=== PATIENT | male | born 1930 | race Caucasian/White ===

== ENCOUNTER → 2016-06-14 | Outpatient (CLI) | payer MEDICARE, MEDICAID | END | disposition home or self-care (01) | LOC: GT 07:20 | PROVIDERS: ATTEND Internal Medicine | DX: I50.9 Heart failure, unspecified (principal); I10 Essential (primary) hypertension; M15.0 Primary generalized (osteo)arthritis ==

== ENCOUNTER → 2016-06-17 | Outpatient (CLI) | payer MEDICARE, MEDICAID | LOC: GT 07:44 | PROVIDERS: ATTEND Family Medicine | DX: I10 Essential (primary) hypertension (principal); I48.91 Unspecified atrial fibrillation; J44.1 Chronic obstructive pulmonary disease with (acute) exacerbation; E11.9 Type 2 diabetes mellitus without complications ==

== ENCOUNTER → 2016-07-26 | Outpatient (CLI) | payer MEDICARE, MEDICAID | END | disposition home or self-care (01) | LOC: GT 08:07 | PROVIDERS: ATTEND Family Medicine | DX: I48.91 Unspecified atrial fibrillation (principal); E11.9 Type 2 diabetes mellitus without complications; E56.8 Deficiency of other vitamins; I10 Essential (primary) hypertension; D51.8 Other vitamin B12 deficiency anemias; D64.9 Anemia, unspecified ==

== ENCOUNTER → 2016-09-25 | Outpatient (CLI) | payer MEDICARE, MEDICAID | LOC: GT 06:52 | PROVIDERS: ATTEND Family Medicine | DX: I10 Essential (primary) hypertension (principal); E56.8 Deficiency of other vitamins; E11.9 Type 2 diabetes mellitus without complications; D51.9 Vitamin B12 deficiency anemia, unspecified; E56.9 Vitamin deficiency, unspecified; Z51.81 Encounter for therapeutic drug level monitoring ==

== ENCOUNTER → 2016-11-13 | Outpatient (CLI) | payer MEDICAID, MEDICARE | END | disposition home or self-care (01) | LOC: GT 11:05 | PROVIDERS: ATTEND Family Medicine | DX: I48.91 Unspecified atrial fibrillation (principal) ==

== ENCOUNTER → 2017-01-27 | Outpatient (CLI) | payer MEDICARE | END | disposition home or self-care (01) | LOC: GT 07:36 | PROVIDERS: ATTEND Family Medicine | DX: I11.0 Hypertensive heart disease with heart failure (principal); I50.9 Heart failure, unspecified; E11.9 Type 2 diabetes mellitus without complications; D51.8 Other vitamin B12 deficiency anemias; E56.9 Vitamin deficiency, unspecified ==

== ENCOUNTER → 2017-02-03 | Outpatient (CLI) | payer MEDICARE | END | disposition home or self-care (01) | LOC: GT 07:27 | PROVIDERS: ATTEND Family Medicine | DX: I48.91 Unspecified atrial fibrillation (principal); I10 Essential (primary) hypertension; E56.8 Deficiency of other vitamins; G30.9 Alzheimer's disease, unspecified; J44.1 Chronic obstructive pulmonary disease with (acute) exacerbation; A00-B99 Certain infectious and parasitic diseases; E11.9 Type 2 diabetes mellitus without complications ==

== ENCOUNTER → 2017-02-28 | Outpatient (CLI) | payer MEDICARE | END | disposition home or self-care (01) | LOC: GT 08:17 | PROVIDERS: ATTEND Family Medicine | DX: D51.8 Other vitamin B12 deficiency anemias (principal); E56.9 Vitamin deficiency, unspecified ==

== ENCOUNTER → 2017-03-26 | Outpatient (CLI) | payer MEDICARE | LOC: GT 06:25 | PROVIDERS: ATTEND Family Medicine | DX: J18.9 Pneumonia, unspecified organism (principal) | CPT/HCPCS: 85025; P9603 ==

== ENCOUNTER → 2017-05-14 | Outpatient (CLI) | payer MEDICARE | LOC: GT 07:26 | PROVIDERS: ATTEND Family Medicine | DX: I10 Essential (primary) hypertension (principal); D51.8 Other vitamin B12 deficiency anemias; E11.9 Type 2 diabetes mellitus without complications; E56.8 Deficiency of other vitamins; I48.91 Unspecified atrial fibrillation; I50.9 Heart failure, unspecified; M10.00 Idiopathic gout, unspecified site | CPT/HCPCS: 36415; 80053; 80061; 80162; 82248; 83036; 85025; P9603 ==

== ENCOUNTER 2017-06-17 10:47 | Inpatient (IN) | payer MEDICARE ==
--- NOTE | 2017-06-17 10:52 | HP ---
SUPERVISING PHYSICIAN: Marcin Posada MD CHIEF COMPLAINT: Shortness of breath. HISTORY OF PRESENT ILLNESS: This is an 87-year-old male resident of a intermediate who came with shortness of breath. Apparently they had been treating him for a chronic obstructive pulmonary disease exacerbation on an outpatient basis for a couple of weeks. He was being treated with Zithromax and Keflex. He failed to really improve and in the office today was significantly short of breath and unable to speak in full sentences. Therefore, Dr. Coles contacted me for direct admission. Currently, the patient is pretty short of breath at rest. He is diminished with bilateral wheezing. He has rhonchi noted as well. O2 saturation is about 92% on room air. PAST MEDICAL HISTORY: 1. Chronic obstructive pulmonary disease. 2. Atrial fibrillation. 3. Sleep apnea. 4. Hypertension. 5. Left bundle branch block. 6. Cor pulmonale. 7. Diverticulosis. 8. Renal insufficiency. 9. Gout. 10. Diabetes mellitus, type 2. 11. Herpes zoster. PAST SURGICAL HISTORY: 1. Right inguinal hernia repair. 2. Right total knee arthroplasty. 3. Basal cell carcinoma excision. 4. Colonoscopy with polypectomies. CURRENT MEDICATIONS: 1. Multivitamin 1 tab daily. 2. Vitamin D 1000 units p.o. daily. 3. Vitamin B12 1000 mcg sublingual daily. 4. Calcium plus D 1 tab p.o. daily. 5. Anoro Ellipta 62.5/25 1 inhalation daily. 6. Spironolactone 25 mg daily. 7. Lasix 40 mg at 12 noon 8. Losartan 25 mg daily. 9. Glipizide 10 mg p.o. b.i.d. 10. Digoxin 125 mcg p.o. daily. 11. Allopurinol 100 mg p.o. daily. 12. Omeprazole 20 mg p.o. b.i.d.. 13. Lexapro 5 mg p.o. daily. 14. DuoNeb 3 mL per nebulizer q.i.d. p.r.n. 15. Hydroxyzine 1 to 2 tabs p.o. at bedtime. 16. Metformin 500 mg t.i.d. ALLERGIES: ATORVASTATIN, CODEINE, LISINOPRIL, MAGNESIUM, PENICILLIN, SIMVASTATIN, SULFA. FAMILY HISTORY: Father at age 94. Mother had Alzheimer's disease. SOCIAL HISTORY: No alcohol, no illicit drugs, but does smoke. REVIEW OF SYSTEMS: CONSTITUTIONAL: No fever or chills. No recent weight loss or weight gain. Positive for malaise. HEENT: No headaches, vision changes, ear pain, nasal congestion or throat pain. RESPIRATORY: Positive for cough. No hemoptysis. Positive for dyspnea. No pleuritic chest pain. CARDIOVASCULAR: No chest pain, palpitations or peripheral edema. GASTROINTESTINAL: No nausea, vomiting, diarrhea, constipation or abdominal pain. GENITOURINARY: No dysuria, frequency or flank pain. MUSCULOSKELETAL: No muscle cramps, joint pain or joint swelling. ENDOCRINE: No polydipsia, polyuria, polyphagia. No heat or cold intolerance. NEUROLOGIC: No syncope, paresthesias, seizures. PHYSICAL EXAMINATION: VITAL SIGNS: Blood pressure 108/68. Heart rate 96. Respiratory rate 22. Temperature 98.1. Oxygen saturation 93%. GENERAL: Mr. Durand is an 87-year-old male patient in obvious respiratory distress currently. HEENT: Normocephalic, atraumatic. Pupils are equal and reactive. No nasal drainage. Throat with dry mucosa. NECK: Supple. Midline trachea. No jugular venous distention. CHEST: Symmetrical with equal rise and fall of the chest with inspiration and expiration. Lung sounds are diminished with bilateral wheezing and scattered rhonchi. CARDIOVASCULAR: Slightly irregular rhythm. Normal S1, S2. ABDOMEN: Soft. Positive bowel sounds. GENITOURINARY: Deferred. EXTREMITIES: Lower extremities with no edema. NEUROLOGIC: The patient is alert. LABORATORY: White count 8.6, hemoglobin 12.5, hematocrit 37.5, platelet count 187. Sodium 135, potassium 4.9, chloride 101, CO2 23, BUN 44, creatinine 1.8, glucose 256, calcium 9.2. BNP 222. Chest x-ray done at the clinic did not show any pneumonia. ASSESSMENT: 1. Chronic obstructive pulmonary disease exacerbation which has failed outpatient therapy. 2. Hypertension, currently controlled. 3. Diabetes mellitus, type 2. 4. History of atrial fibrillation with currently controlled rate. PLAN: We will utilize empiric antibiotics as well as IV steroids and nebulizer therapies. He did not appear to improve well with azithromycin and Keflex p.o. as an outpatient. We will utilize Lovenox for DVT prophylaxis as well as omeprazole for GI ulcer prophylaxis at this point as well. If he improves over the next 24 hours, he may be able to go back to the intermediate tomorrow depending on his clinical picture at that time. We will repeat labs as well as chest x-ray tomorrow as well. #[id number] [facility]
[2017-06-17] MEDS ORDERED: DEXTROSE 50% 25 GM/50 ML SYG IV PRN (10:53)
[2017-06-17] MEDS ORDERED: SODIUM CHLORIDE 0.9% (FLUSH) 10 ML SYG IV PRN (10:53)
[2017-06-17] MEDS ORDERED: GLUCAGON INJ 1 MG VIAL SUBCU PRN (10:53)
[2017-06-17] MEDS ORDERED: ACETAMINOPHEN 325 MG TAB PO PRN (10:53)
[2017-06-17] MEDS ORDERED: methylPREDNISolone SODIUM SUC 40 MG/ML VIAL IV SCH (11:00)
[2017-06-17] MEDS ORDERED: levoFLOXacin 500MG IV 500 MG in PREMIX BAG 1 BAG IVPB SCH (11:00)
[2017-06-17] MEDS ORDERED: levoFLOXacin 500MG IV 100 ML IVPB ONE (11:21)
[2017-06-17] MEDS: IV SET AND CAP CHANGE INJ INJ SCH (11:29)
[2017-06-17] MEDS: INSULIN LISPRO 100 UNITS/ML PEN SUBCU SCH ×3 (12:06→21:09)
[2017-06-17] MEDS: IPRATROPIUM/ALBUTEROL 3 ML VIAL INH SCH ×3 (13:50→20:09)
[2017-06-17] MEDS ORDERED: methylPREDNISolone SODIUM SUC 40 MG/ML VIAL IV ONE (16:22)
[2017-06-17] MEDS ORDERED: glipiZIDE 5 MG TAB PO ONE (16:22)
[2017-06-17] MEDS ORDERED: OMEPRAZOLE CAP 20 MG CAP PO ONE (16:22)
[2017-06-17] MEDS: glipiZIDE 5 MG TAB PO SCH (16:28)
[2017-06-17] MEDS: OMEPRAZOLE CAP 20 MG CAP PO SCH (16:29)
[2017-06-17] MEDS: methylPREDNISolone SODIUM SUC 40 MG/ML VIAL IV SCH ×2 (17:31→23:49)
[2017-06-17] MEDS: SODIUM CHLORIDE 0.9% 1000ML 1,000 ML IVS PRN (19:35)
[2017-06-17] MEDS: metFORMIN XR 500 MG TAB.ER.24 PO SCH (21:08)
[2017-06-18] MEDS: IPRATROPIUM/ALBUTEROL 3 ML VIAL INH SCH ×5 (00:05→16:15)
[2017-06-18] MEDS: SODIUM CHLORIDE 0.9% 1000ML 1,000 ML IVS PRN ×2 (05:22→16:47)
[2017-06-18] MEDS: methylPREDNISolone SODIUM SUC 40 MG/ML VIAL IV SCH ×3 (05:32→17:00)
[2017-06-18] MEDS: OMEPRAZOLE CAP 20 MG CAP PO SCH ×2 (06:24→16:50)
[2017-06-18] MEDS: glipiZIDE 5 MG TAB PO SCH ×2 (06:24→16:50)
[2017-06-18] MEDS ORDERED: OMEPRAZOLE CAP 20 MG CAP PO SCH (06:30)
[2017-06-18] MEDS ORDERED: levoFLOXacin 500MG IV 0 ML IVPB ONE (07:11)
[2017-06-18] MEDS: INSULIN LISPRO 100 UNITS/ML PEN SUBCU SCH ×4 (07:12→21:24)
--- NOTE | 2017-06-18 07:16 | RAD ---
Procedure: XR CHEST 1 VIEW Exam Date: 06/18/2017 Ordering Provider: Fabiano Walter Clinical Indication: copd exac Comparison: 06/11/2017 Findings: Cardiomediastinal silhouette: Cardiac size magnified by technique. Pulmonary vasculature : Prominent centrally without kena edema. Focal lung consolidation: No focal lung consolidation. Lungs are hyperinflated. Pleural effusion: None Pneumothorax: None Bones and soft tissues: Nonacute Impression: 1. No acute abnormalities in the chest. Electronically signed by: Martín Chen MD 06/18/2017 7:15 AM CDT
[2017-06-18] MEDS: SPIRONOLACTONE 25 MG TAB PO SCH (08:39)
[2017-06-18] MEDS: CALCIUM CARBONATE-VITAMIN D 500 MG TAB PO SCH (08:39)
[2017-06-18] MEDS: LOSARTAN POTASSIUM 25 MG TAB PO SCH (08:39)
[2017-06-18] MEDS: ESCITALOPRAM 10 MG TAB PO SCH (08:39)
[2017-06-18] MEDS: MULTIPLE VITAMINS W/ MINERALS 1 EA TAB PO SCH (08:39)
[2017-06-18] MEDS: CYANOCOBALAMIN 1,000 MCG TAB PO SCH (08:41)
[2017-06-18] MEDS: CHOLECALCIFEROL 2,000 IU TAB PO SCH (08:41)
[2017-06-18] MEDS: ALLOPURINOL 100 MG TAB PO SCH (08:42)
[2017-06-18] MEDS ORDERED: levoFLOXacin 250MG IV 50 ML IVPB ONE (08:45)
[2017-06-18] MEDS: levoFLOXacin 250MG IV 250 MG in PREMIX BAG 1 BAG IVPB SCH (08:46)
[2017-06-18] MEDS ORDERED: levoFLOXacin 500MG IV 500 MG in PREMIX BAG 1 BAG IVPB SCH (09:00)
[2017-06-18] MEDS: metFORMIN XR 500 MG TAB.ER.24 PO SCH ×4 (09:29→16:50)
[2017-06-18] MEDS: DIGOXIN 0.125 MG TAB PO SCH (12:47)
[2017-06-18] MEDS ORDERED: LEVALBUTEROL NEBS 1.25 MG/3 ML VIAL NEB PRN (19:43)
[2017-06-18] MEDS: SODIUM CHLORIDE 0.9% (FLUSH) 10 ML SYG IV SCH (21:24)
--- NOTE | 2017-06-19 00:06 | PN ---
DATE: 06/18/17 SUPERVISING PHYSICIAN: Marcin Posada M.D. SUBJECTIVE: The patient is sitting up in his bed in his hospital room. He is eating his meal. Complains of shortness of breath but is much improved since yesterday. Denies any chest pain, nausea, vomiting, diarrhea or constipation. Still feels quite weak. OBJECTIVE: VITAL SIGNS: He is afebrile, heart rate has been 102 to 130. Blood pressure 91/52, respiratory rate 23, O2 sat has been as low as 89% on room air and is now 92% on room air. RESPIRATORY: A few rhonchi scattered throughout all lung hood. There is no expiratory wheezing. Somewhat diminished at the bases. CARDIAC: Tachycardic rate, regular rhythm. GASTROINTESTINAL: Abdomen is soft, nondistended, non-tender. Bowel sounds are positive. NEUROLOGIC: He is awake, alert and oriented times three. LABORATORY: Sodium is slightly low at 134 with a slightly elevated potassium at 5.3, chloride 104, carbon dioxide 20, BUN 45, creatinine 1.92. Glucose has run between 271 and 333. Preliminary blood cultures show no growth after 24 hours. Chest x-ray per radiology interpretation showed no acute abnormalities in the chest. All other labs and films have been reviewed via the EMR. ASSESSMENT: 1. Chronic obstructive pulmonary disease with acute exacerbation. He has failed outpatient therapy. 2. Hypertension currently controlled. 3. Acute on chronic kidney disease. His baseline creatinine is about 1.5. 4. Diabetes mellitus, type 2. 5. History of atrial fibrillation. PLAN: We will continue present supportive care. Will need to closely watch his heart rate. It has been elevated to the 120s today, but his family has said that his heart rate always goes up when he is on IV steroids. His IV steroids have been discontinued and he is now on a p.o. dose of prednisone. I have discontinued his fluids. We will have to closely watch his potassium, it is slightly elevated as well as his kidney functions. I will reorder some labs for in the morning. The patient has been encouraged to wear his oxygen if needed, although he usually does not have it on. We will monitor him closely and follow as needed. #[id number] [facility]
[2017-06-19] MEDS: OMEPRAZOLE CAP 20 MG CAP PO SCH ×2 (06:30→16:59)
[2017-06-19] MEDS: glipiZIDE 5 MG TAB PO SCH ×2 (06:45→16:59)
[2017-06-19] MEDS ORDERED: levoFLOXacin 250MG IV 50 ML IVPB ONE (07:01)
[2017-06-19] MEDS: INSULIN LISPRO 100 UNITS/ML PEN SUBCU SCH ×4 (07:40→21:06)
[2017-06-19] MEDS: metFORMIN XR 500 MG TAB.ER.24 PO SCH (07:40)
[2017-06-19] MEDS: levoFLOXacin 250MG IV 250 MG in PREMIX BAG 1 BAG IVPB SCH (08:41)
[2017-06-19] MEDS: ESCITALOPRAM 10 MG TAB PO SCH (08:41)
[2017-06-19] MEDS: CHOLECALCIFEROL 2,000 IU TAB PO SCH (08:42)
[2017-06-19] MEDS: MULTIPLE VITAMINS W/ MINERALS 1 EA TAB PO SCH (08:42)
[2017-06-19] MEDS: SPIRONOLACTONE 25 MG TAB PO SCH (08:42)
[2017-06-19] MEDS: LEVALBUTEROL NEBS 1.25 MG/3 ML VIAL NEB SCH ×4 (08:42→20:37)
[2017-06-19] MEDS: predniSONE 20 MG TAB PO SCH (08:44)
[2017-06-19] MEDS: ALLOPURINOL 100 MG TAB PO SCH (08:45)
[2017-06-19] MEDS: CYANOCOBALAMIN 1,000 MCG TAB PO SCH (08:45)
[2017-06-19] MEDS: LOSARTAN POTASSIUM 25 MG TAB PO SCH (08:45)
[2017-06-19] MEDS: SODIUM CHLORIDE 0.9% (FLUSH) 10 ML SYG IV SCH ×2 (08:46→21:06)
[2017-06-19] MEDS: CALCIUM CARBONATE-VITAMIN D 500 MG TAB PO SCH (08:47)
[2017-06-19] MEDS: DIGOXIN 0.125 MG TAB PO SCH (11:55)
[2017-06-19] MEDS ORDERED: SODIUM CHLORIDE 0.9% 500ML 500 ML IVS ONE (17:29)
--- NOTE | 2017-06-19 19:04 | PN ---
DATE: 06/19/17 SUPERVISING PHYSICIAN: Marcin Posada M.D. SUBJECTIVE: The patient is lying in bed. He is visiting with his family. Has no complaints of shortness of breath, nausea, vomiting or diarrhea. Complains of some difficulty speaking but he does have his appetite back. He is rather hoarse. OBJECTIVE: He is afebrile, heart rate 73, blood pressure 107/64, respiratory rate 18, O2 sat 95% on room air. RESPIRATORY: Essentially clear to auscultation bilaterally. Somewhat diminished especially at the bases. CARDIAC : Regular rate and rhythm. GASTROINTESTINAL: Abdomen is soft, nondistended, non -tender. Bowel sounds are positive. NEUROLOGIC: He is awake, alert and oriented times three. LABORATORY: WBCs are 11.3 with hemoglobin 11.3 and hematocrit 34.3, neutrophils 92.5%. Sodium 138, potassium 5.7, chloride 108, carbon dioxide 18, BUN 54, creatinine 2.02. Random glucose 280. Preliminary blood cultures show no growth after 48 hours. All other labs and films have been reviewed via the EMR. ASSESSMENT: 1. Chronic obstructive pulmonary disease with acute exacerbation, failed outpatient therapy. 2. Hypertension currently controlled. 3. Acute on chronic kidney disease. His baseline creatinine is about 1.5. 4. Diabetes mellitus, type 2. 5. History of atrial fibrillation. PLAN: We will continue present supportive care. His heart rate is much better overnight as we have decreased his steroids. Will continue to monitor that closely. His kidney function is slightly worsened today as his potassium is slightly higher. Will repeat lab in the morning and monitor that closely. Continue to encourage good pulmonary hygiene. I will also consult Physical Therapy. Will continue to monitor the patient closely and follow as needed. Dr. Posada is the collaborating physician available for consultation. [facility][id number] [facility]
[2017-06-20] MEDS: OMEPRAZOLE CAP 20 MG CAP PO SCH ×2 (06:25→16:26)
[2017-06-20] MEDS: glipiZIDE 5 MG TAB PO SCH ×2 (06:34→16:26)
[2017-06-20] MEDS: INSULIN LISPRO 100 UNITS/ML PEN SUBCU SCH ×3 (07:42→16:30)
[2017-06-20] MEDS ORDERED: levoFLOXacin 250MG IV 50 ML IVPB ONE (08:20)
[2017-06-20] MEDS: LEVALBUTEROL NEBS 1.25 MG/3 ML VIAL NEB SCH ×3 (08:24→15:23)
[2017-06-20] MEDS: ALLOPURINOL 100 MG TAB PO SCH (08:44)
[2017-06-20] MEDS: levoFLOXacin 250MG IV 250 MG in PREMIX BAG 1 BAG IVPB SCH (08:44)
[2017-06-20] MEDS: CHOLECALCIFEROL 2,000 IU TAB PO SCH (08:45)
[2017-06-20] MEDS: predniSONE 20 MG TAB PO SCH (08:45)
[2017-06-20] MEDS: SPIRONOLACTONE 25 MG TAB PO SCH (08:46)
[2017-06-20] MEDS: CYANOCOBALAMIN 1,000 MCG TAB PO SCH (08:46)
[2017-06-20] MEDS: CALCIUM CARBONATE-VITAMIN D 500 MG TAB PO SCH (08:46)
[2017-06-20] MEDS: LOSARTAN POTASSIUM 25 MG TAB PO SCH (08:46)
[2017-06-20] MEDS: ESCITALOPRAM 10 MG TAB PO SCH (08:47)
[2017-06-20] MEDS: MULTIPLE VITAMINS W/ MINERALS 1 EA TAB PO SCH (08:47)
[2017-06-20] MEDS: SODIUM CHLORIDE 0.9% (FLUSH) 10 ML SYG IV SCH (08:48)
[2017-06-20] MEDS: DIGOXIN 0.125 MG TAB PO SCH (12:10)
[2017-06-20] MEDS: IV SET AND CAP CHANGE INJ INJ SCH (12:13)
[2017-06-20 14:44] VITALS: BP 107/67; TEMP 98.2
[2017-06-20 16:07] VITALS: O2SAT 91
[2017-06-21] MEDS ORDERED: levoFLOXacin 500 MG TAB PO SCH (09:00)
--- NOTE | 2017-06-21 13:45 | DS ---
SUPERVISING PHYSICIAN: Marcin Posada M.D. DISCHARGE DIAGNOSIS: 1. Chronic obstructive pulmonary disease with acute exacerbation, failed outpatient therapy. 2. Hypertension currently controlled. 3. Acute on chronic kidney disease. His baseline creatinine is about 1.5. 4. Diabetes mellitus, type 2. 5. History of atrial fibrillation. HISTORY OF PRESENT ILLNESS: This is an 87-year-old male patient who is a resident of [facility], who came in with shortness of breath. Dr. Coles, his primary care physician, had been treating his COPD as an outpatient basis for several weeks. He had being treated with Zithromax and Keflex. He failed to improve and was a direct admission from Dr. Coles' office to the hospital. HOSPITAL COURSE: On admission, he was very shortness of breath. He was diminished with bilateral wheezing, has rhonchi noted as well and saturation of 92% on room air. He was started on IV steroids as well as Levaquin. His IV steroids were titrated down fairly quickly as his family said that IV steroids tend to make him tachycardic. For about 24 hours his heart rate was in the 110s to low 130s. After titrating his steroids down his heart rate did come down to around 100. He has been on p.o. steroids for the last 24 hours and his pulse rate is down to the 80s. His H&H was stable. His WBCs did get as high at 11.3 but may have been due to his steroid therapy. Today, it is 10. He did have a left shift through his entire stay and today his neutrophils are 87.9%. He was hyponatremic several times and today his sodium is 132. Potassium was slightly elevated. It was as high as 5.7, today it is 5.3 but that may be due to his chronic kidney disease. Creatinine baseline is about 1.5 and today it is 1.74. His creatinine was as high as 2.02 but he received some IV fluids and that has improved. His preliminary blood culture showed no growth after 3 days and his chest x-ray showed no acute abnormalities of the chest. The patient is much improved and he will be discharged to [facility] today. DISCHARGE PLAN: The patient will be discharged back to [facility] today. He is in good condition. He is to increase his activity as tolerated. He has a followup appointment with his primary care physician Dr. Coles, on 07/01/17 at 8:30 AM. He is to get a BMP on arrival due to his hyponatremia and hyperkalemia. I have discharged him on Levaquin and a prednisone taper. There was also a question that the patient may have been allergic to Levaquin, but he has tolerated his Levaquin without any issues. He [facility] also [facility]acting [facility] but his dosing was never clarified while in the hospital. He will be discharged on his usual medications. The [facility] called that his Levemir had inadvertently been left off of his medication list, but it is to be resumed at the [facility] at his previous dosing which I believe is 6 units of long-acting insulin daily. I have also given him a routine sliding scale insulin a.c. and h.s. If he has any further problems or complications, he is to return to the hospital or call Dr. Coles' office. DISCHARGE MEDICATIONS: 1. Furosemide. 2. Allopurinol. 3. Cyanocobalamin. 4. Multivitamins. 5. Calcium and Vitamin D. 6. Anoro ellipta. 7. Spironolactone. 8. Losartan. 9. Glipizide. 10. Digoxin. 11. Omeprazole. 12. Lexapro. 13. DuoNeb. 14. Hydroxyzine. 15. Metformin. 16. Vitamin D. 17. Levaquin. 18. Prednisone. 19. Long-acting insulin. 20. Humalog insulin sliding scale a.c. and h.s. Dr. Posada is the collaborating physician available for consultation. #[id number] [facility]
== END 2017-06-20 16:56 | DRG 191 ==
LOC: MS 10:47
PROVIDERS: ADMIT Nurse Practitioner; ATTEND Nurse Practitioner Acute Care
DX: J44.1 Chronic obstructive pulmonary disease with (acute) exacerbation (principal); N17.9 Acute kidney failure, unspecified; E87.1 Hypo-osmolality and hyponatremia; I13.10 Hypertensive heart and chronic kidney disease without heart failure, with stage 1 through stage 4 chronic kidney disease, or unspecified chronic kidney disease; E11.22 Type 2 diabetes mellitus with diabetic chronic kidney disease; N18.9 Chronic kidney disease, unspecified; E87.5 Hyperkalemia; I48.91 Unspecified atrial fibrillation; Z79.4 Long term (current) use of insulin; G47.30 Sleep apnea, unspecified; I44.7 Left bundle-branch block, unspecified; M10.9 Gout, unspecified; Z96.651 Presence of right artificial knee joint; Z85.9 Personal history of malignant neoplasm, unspecified; Z79.84 Long term (current) use of oral hypoglycemic drugs; Z88.5 Allergy status to narcotic agent; Z88.0 Allergy status to penicillin; Z88.2 Allergy status to sulfonamides; Z88.8 Allergy status to other drugs, medicaments and biological substances

== ENCOUNTER → 2017-06-25 | Outpatient (CLI) | payer MEDICARE, MEDICAID | LOC: GMAL 10:47 | PROVIDERS: ATTEND Family Medicine | DX: I10 Essential (primary) hypertension (principal); I50.9 Heart failure, unspecified ==

== ENCOUNTER → 2017-06-30 | Outpatient (CLI) | payer MEDICARE, MEDICAID | LOC: GT 05:24 | PROVIDERS: ATTEND Family Medicine | DX: E11.9 Type 2 diabetes mellitus without complications (principal); I50.9 Heart failure, unspecified; I10 Essential (primary) hypertension ==

== ENCOUNTER → 2017-11-25 | Outpatient (CLI) | payer MEDICARE, MEDICAID | LOC: GT 17:07 | PROVIDERS: ATTEND Physician Assistant | DX: L02.92 Furuncle, unspecified (principal) ==

== ENCOUNTER 2018-03-04 08:48 | Inpatient (IN) | payer MEDICARE, MEDICAID ==
[2018-03-04] MEDS ORDERED: IPRATROPIUM/ALBUTEROL 3 ML VIAL NEB ONE ×2 (09:21→11:56)
--- NOTE | 2018-03-04 09:34 | ED.PDOC ---
History of Present Illness - General Chief Complaint: Respiratory Problem Time Seen by Provider: 03/04/18 09:31 Source: patient Exam Limitations: no limitations Additional Information: PT PRESENTS AFTER FALL LAST PM. DID HIT HEAD NO LOC. REFUSED TO COME TO ER. PT HAS HAD PROGRESSIVE WEAKNESS, COUGH, AND LOW GRADE FEVER MUCH WORSE SINCE YESTERDAY. - History of Present Illness Timing/Duration: unsure Severity: moderate Improving Factors: nothing Worsening Factors: nothing Associated Symptoms: cough Allergies/Adverse Reactions: Allergies Atorvastatin [From Lipitor] Allergy (Verified 06/17/17 11:10) Codeine Allergy (Verified 06/17/17 11:10) Lisinopril Allergy (Verified 06/17/17 11:10) Magnesium Sulfate Allergy (Verified 06/17/17 11:10) Penicillins Allergy (Verified 06/17/17 11:10) Simvastatin [From Zocor] Allergy (Verified 06/17/17 11:10) Sulfa Antibiotics Allergy (Verified 06/17/17 11:10) Home Medications: Ambulatory Orders Allopurinol 100 mg PO DAILY 06/08/13 Furosemide [Lasix] 40 mg PO DAILY@1200 06/08/13 Calcium Citrate-Vitamin D [Calcium Citrate + D 315-200 mg-Unit] 1 tab PO DAILY 06/17/17 Cholecalciferol [Vitamin D] 1,000 unit PO DAILY 06/17/17 Cyanocobalamin [Vitamin B-12] 1,000 mcg SL DAILY 06/17/17 Digoxin [Digox] 125 mcg PO DAILY 06/17/17 Escitalopram Oxalate [Lexapro] 5 mg PO DAILY 06/17/17 Glipizide 10 mg PO BID 06/17/17 Hydroxyzine HCl 1 - 2 tablet PO BEDTIME 06/17/17 Ipratropium/Albuterol [Duoneb] 3 ml NEB QID PRN 06/17/17 Losartan Potassium [Cozaar] 25 mg PO DAILY 06/17/17 Metformin HCl [Metformin HCl ER] 500 mg PO TID 06/17/17 Multiple Vitamins W/ Minerals [Abdek] 1 cap PO DAILY 06/17/17 Omeprazole 20 mg PO BID 06/17/17 Spironolactone [Aldactone] 25 mg PO DAILY 06/17/17 Umeclidinium-Vilanterol [Anoro Ellipta 62.5-25 Mcg/INH] 1 aer IN DAILY 06/17/17 Levofloxacin [Levaquin] 250 mg PO DAILY #6 tablet 06/20/17 Prednisone See Taper PO DAILY #30 tab 06/20/17 Review of Systems - Review of Systems Constitutional: States: fever. Denies: chills EENTM: States: no symptoms reported Respiratory: States: cough, short of breath Cardiology: Denies: chest pain, palpitations Gastrointestinal/Abdominal: Denies: abdominal pain, nausea, vomiting Genitourinary: States: no symptoms reported Musculoskeletal: States: no symptoms reported Skin: States: no symptoms reported Neurological: Denies: paresthesia, weakness Endocrine: States: no symptoms reported Hematologic/Lymphatic: States: no symptoms reported Past Medical History (General) - Patient Medical History Hx Seizures: No Hx Stroke: No Hx Asthma: No Hx of COPD: Yes Hx Cardiac Disorders: Yes - A-Fib Hx Congestive Heart Failure: No Hx Pacemaker: No Hx Hypertension: Yes Hx Diabetes: Yes Hx Cancer: No Hx MRSA: No - Vaccination History Hx Tetanus, Diphtheria Vaccination: No Hx Influenza Vaccination: Yes Hx Pneumococcal Vaccination: Yes - Social History Hx Tobacco Use: Yes Hx Alcohol Use: No Hx Substance Use: No Hx Physical Abuse: No Hx Emotional Abuse: No - Triage Comment ED Triage Comment: EMS states that patient has breathing difficulty and shortness of breath that started last night. Refused medications and transport to hospital last night. [facility]. Patient is running a temp and has productive cough. Family Medical History - Family History Father Family History: No Known Living Status: Physical Exam - Physical Exam General Appearance: Alert, Other - MILD RESP DISTRESS Eye Exam: bilateral normal Ears, Nose, Throat: hearing grossly normal, normal ENT inspection, other - DRY MUCOUS MEMBRANES Neck: non-tender, full range of motion, supple Respiratory: normal breath sounds, other - FEW SCATTERED RALES, NO WHEEZES, NO RHONCHI Cardiovascular/Chest: tachycardia, irregularly irregular Gastrointestinal/Abdominal: non tender, soft, no organomegaly Back Exam: normal inspection, no CVA tenderness Extremity: normal range of motion, non-tender, no pedal edema Neurologic: no motor/sensory deficits, alert, oriented x 3 Skin Exam: normal color Lymphatic: no adenopathy Progress - EKG/XRAY/CT EKG: Atrial, Fibrillation - VENTRICULAR RATE 149, LAD, , nonspecific ST T wave Chg - NAIP, , Unchanged from - 06/17/17 EXCEPT FOR RATE Departure - Departure Disposition: Discharge to Home or Self Care Departure Forms: ED Discharge - Pt. Copy, Patient Portal Self Enrollment Referrals: Henry Coles III, MD [Primary Care Provider] - 1-2 Weeks Home Medications: Ambulatory Orders Allopurinol 100 mg PO DAILY 06/08/13 Furosemide [Lasix] 40 mg PO DAILY@1200 06/08/13 Calcium Citrate-Vitamin D [Calcium Citrate + D 315-200 mg-Unit] 1 tab PO DAILY 06/17/17 Cholecalciferol [Vitamin D] 1,000 unit PO DAILY 06/17/17 Cyanocobalamin [Vitamin B-12] 1,000 mcg SL DAILY 06/17/17 Digoxin [Digox] 125 mcg PO DAILY 06/17/17 Escitalopram Oxalate [Lexapro] 5 mg PO DAILY 06/17/17 Glipizide 10 mg PO BID 06/17/17 Hydroxyzine HCl 1 - 2 tablet PO BEDTIME 06/17/17 Ipratropium/Albuterol [Duoneb] 3 ml NEB QID PRN 06/17/17 Losartan Potassium [Cozaar] 25 mg PO DAILY 06/17/17 Metformin HCl [Metformin HCl ER] 500 mg PO TID 06/17/17 Multiple Vitamins W/ Minerals [Abdek] 1 cap PO DAILY 06/17/17 Omeprazole 20 mg PO BID 06/17/17 Spironolactone [Aldactone] 25 mg PO DAILY 06/17/17 Umeclidinium-Vilanterol [Anoro Ellipta 62.5-25 Mcg/INH] 1 aer IN DAILY 06/17/17 Levofloxacin [Levaquin] 250 mg PO DAILY #6 tablet 06/20/17 Prednisone See Taper PO DAILY #30 tab 06/20/17
--- NOTE | 2018-03-04 10:13 | RAD ---
EXAM DESCRIPTION: Chest,1 View CLINICAL HISTORY: Cough and shortness of breath FINDINGS/ IMPRESSION: Comparison 06/18/2017 Interval development of interstitial infiltrate left upper lobe. Subtle fullness possible slight retraction of the left hilum superiorly. Recommend chest CT to exclude underlying obstructive mass Heart size is normal. Prominent central vasculature/pulmonary artery on the right. Perihilar peribronchial thickening may relate to chronic bronchitis Electronically signed by: Gordy Lisa MD 03/04/2018 10:11 AM [facility]
--- NOTE | 2018-03-04 10:20 | CT ---
EXAM DESCRIPTION: CT head without contrast CLINICAL HISTORY: Fall injury. Headache COMPARISON: None. TECHNIQUE: Noncontrast spiral CT of the brain. This exam was performed according to our departmental dose-optimization program, which includes automated exposure control, adjustment of the mA and/or kV according to patient size and/or use of iterative reconstruction technique FINDINGS: Motion degraded study limits evaluation of facial bones and skull base. No calvarial or skull base fracture identified. No fluid in the mastoid air cells. Fluid in the partially visualized left maxillary sinus which could be sinusitis or trauma related Cerebral volume loss with prominence of the cortical sulci most significantly affecting the frontal lobes. Prominent ventricular system likely central volume loss. No suspicion of obstructive hydrocephalus. Moderate white matter disease, nonspecific likely remote microvascular ischemia No intracranial hemorrhage or mass lesion. Atherosclerotic vascular calcifications of the cavernous internal carotid arteries IMPRESSION: No intracranial hemorrhage or evidence of cerebral contusion. Senescent brain. White matter disease and volume loss Fluid in the left maxillary sinus, partially visualized may relate to sinusitis or trauma CT is insensitive for early evaluation of acute stroke. If there is clinical concern for acute ischemia, an MRI may be considered. Electronically signed by: Gordy Lisa MD 03/04/2018 10:19 AM [facility]
[2018-03-04] MEDS ORDERED: SODIUM CHLORIDE 0.9% IVS ONE (11:34)
[2018-03-04] MEDS ORDERED: cefTRIAXone SODIUM 1 GM in SODIUM CHL 0.9% 50ML MIN-BAG+ 50 ML IVPB ONE (11:39)
[2018-03-04] MEDS ORDERED: AZITHROMYCIN IV 500 MG in SODIUM CHLORIDE 0.9% 250ML 250 ML IVPB ONE (11:39)
[2018-03-04] MEDS ORDERED: CEFEPIME 2 GM in SODIUM CHL 0.9% 50ML MIN-BAG+ 50 ML IVPB ONE (11:41)
[2018-03-04] MEDS ORDERED: SODIUM CHL 0.9% 50ML MIN-BAG+ 50 ML IVPB ONE ×2 (11:45→20:05)
[2018-03-04] MEDS ORDERED: CEFEPIME 2 GM VIAL ONE ×2 (11:45→20:05)
--- NOTE | 2018-03-04 12:02 | HP ---
SUPERVISING PHYSICIAN: Marcin Posada M.D. CHIEF COMPLAINT: Shortness of breath and coughing. HISTORY OF PRESENT ILLNESS: This is an 88 year-old male patient who lives at [facility]. He has had about 3 to 4 days of coughing, low- grade fever and progressive weakness. He actually fell yesterday but did not hit his head and had no loss of consciousness, but he refused to come to the E. R. Due to the coughing and low-grade fever he did come this morning. His temperature was 100.1 with a pulse rate of 141, respiratory rate of 36, blood pressure 114/57 and O2 sat was 90% on 3 liters nasal cannula. Lab was done and he was found to have a sodium of 132 with potassium 5.7, chloride 100, carbon dioxide 23, BUN 38, creatinine 1.55. His baseline creatinine is about 1.4 to 1.5. His glucose was elevated at 198. He had a BNP of 460. Total bilirubin was 1.6 and lactic acid was 3.1. Troponin was slightly elevated at 0.06. WBCs were 14.4 with hemoglobin 10.1, hematocrit 30.8. He did have a left shift on his differential. UA was basically within normal limits with a small amount of urine leukocyte esterase and trace of intact urine blood. Blood cultures were drawn and an x-ray was also done. Chest x-ray shows interval development of interstitial infiltrate in the left upper lobe with subtle fullness possible slight retraction to the left hilum superiorly. Recommend chest CT to exclude underlying obstructive mass. Heart size is normal. Prominent central vasculature/pulmonary artery on the right, perihilar/peribronchial thickening may relate to chronic bronchitis. Head CT was also done which showed no intracranial hemorrhage or evidence of cerebral contusion. Senescent brain. White matter disease and volume loss. Fluid in the left maxillary sinus partially visualized, may relate to sinusitis or trauma. He was given some Cefepime in the Emergency Room as well as approximately 2 liters of fluid. He was given several breathing treatments. I was called for hospital admission. PAST MEDICAL HISTORY: 1. Chronic obstructive pulmonary disease. 2. Atrial fibrillation on Digoxin. 3. Sleep apnea. 4. Hypertension. 5. Left bundle branch block. 6. Cor pulmonale. 7. Diverticulosis. 8. Renal insufficiency. 9. Gout. 10. Diabetes mellitus type 2. 11. Herpes zoster. PAST SURGICAL HISTORY: 1. Right inguinal hernia repair. 2. Right total knee arthroplasty. 3. Basal cell carcinoma excision. 4. Colonoscopy with polypectomies. CODE STATUS: Do not resuscitate. CURRENT MEDICATIONS: Per the EMR and awaiting verification. ALLERGIES: ATORVASTATIN, CODEINE, LISINOPRIL, MAGNESIUM, PENICILLIN, SIMVASTATIN AND SULFA. FAMILY HISTORY: Positive for Alzheimer's disease. SOCIAL HISTORY: He lives at [facility]. He does have a history of smoking but has quit since he has been in the [facility]. There is no history of alcohol or illicit drug use. REVIEW OF SYSTEMS: GENERAL: Positive for fever and chills. Negative for weight changes. HEENT: Negative for headaches, vision changes, ear pain or sore throat. RESPIRATORY: As per History of Present Illness. Plus his said that he was coughing up some pink-tinged sputum several weeks ago. CARDIOVASCULAR: Negative for chest pains, palpitations or tachycardia. GASTROINTESTINAL: Negative for nausea, vomiting, constipation or diarrhea. GENITOURINARY: Negative for dysuria, polyuria or hematuria. MUSCULOSKELETAL: Negative for arthralgias or myalgias. NEUROLOGIC: Negative for headaches, seizures or dizziness. PHYSICAL EXAMINATION: VITAL SIGNS: Temperature 100.4, heart rate 141, blood pressure 101/57, respiratory rate 23, O2 sat 93% on room air. GENERAL: This is an 88 year-old male patient who is lying in his hospital bed. He looks to be moderately ill. HEENT: Normocephalic and atraumatic. Pupils are equal and reactive. Oropharynx is clear. NECK: Supple without mass. RESPIRATORY: Diminished breath sounds throughout with some wheezing in the apices and a few scattered rhonchi. CHEST: There is equal rise and fall of the chest with inspiration and expiration. CARDIOVASCULAR: Tachycardic rate, irregular rhythm. Atrial fibrillation on the logistic specialist. ABDOMEN: Soft, nondistended, non-tender. Bowel sounds are positive. EXTREMITIES: No clubbing, cyanosis or edema. NEUROLOGIC: He is awake and alert to person and place only. LABORATORY: Labs and films are as per the History of Present Illness. ASSESSMENT: 1. Sepsis secondary to bilateral pneumonia, most likely healthcare associated pneumonia with an admitting heart rate of greater than 140, respiratory rate of 36, WBCs of 14,400, temperature of 100.4 and lactic acid of 3.1. 2. Electrolyte imbalance most likely hyponatremia, hypochloridemia and hyperkalemia. 3. Elevated bilirubin. 4. Inguinal yeast infection. 5. Diabetes mellitus type 2. 6. Atrial fibrillation on Digoxin. 7. Chronic obstructive pulmonary disease. 8. Obstructive sleep apnea. 9. Chronic renal insufficiency. 10. Gout on Allopurinol. 11. Hypertension on Losartan. PLAN: We will admit the patient to the hospital. I have initiated the pneumonia guidelines. Will continue him on Cefepime and monitor his cultures as they become available. I have rechecked his lactic acid and will give him judicious fluids overnight. I have ordered Diflucan as a one time dose for the yeast infection and will also give him Nystatin powder. He is also on sliding scale insulin with blood sugars to be checked a.c. and h.s. I will restart his home medications as soon as they are verified. He will get good aggressive pulmonary hygiene. I have also given him Lovenox for DVT prophylaxis as well as a PPI for ulcer prophylaxis. We will continue to monitor him closely and followup as needed. Dr. Posada is the collaborating physician available for consultation. #[id number] [facility]
[2018-03-04] MEDS ORDERED: ACETAMINOPHEN 325 MG TAB PO PRN (12:42)
[2018-03-04] MEDS ORDERED: ONDANSETRON INJ 4 MG/2 ML VIAL IV PRN (12:42)
[2018-03-04] MEDS: SODIUM CHLORIDE 0.9% 1000ML 1,000 ML IVS PRN (14:48)
[2018-03-04] MEDS: IV SET AND CAP CHANGE INJ INJ SCH (14:52)
[2018-03-04] MEDS ORDERED: NYSTATIN POWDER 15GM BTTL TOP ONE (15:20)
[2018-03-04] MEDS: IPRATROPIUM/ALBUTEROL 3 ML VIAL NEB SCH ×2 (16:05→20:41)
[2018-03-04] MEDS ORDERED: DEXTROSE 50% 25 GM/50 ML SYG IV PRN (16:54)
[2018-03-04] MEDS ORDERED: GLUCAGON INJ 1 MG VIAL SUBCU PRN (16:54)
[2018-03-04] MEDS ORDERED: FLUCONAZOLE 100 MG TAB PO ONE (17:05)
[2018-03-04] MEDS ORDERED: PANTOPRAZOLE SODIUM IV 40 MG VIAL ONE (20:06)
[2018-03-04] MEDS: ENOXAPARIN SODIUM 30 MG/0.3 ML SYG SUBCU SCH (20:50)
[2018-03-04] MEDS: INSULIN LISPRO 100 UNITS/ML PEN SUBCU SCH (20:50)
[2018-03-04] MEDS: NYSTATIN POWDER 15GM BTTL TOP SCH ×2 (20:51)
[2018-03-04] MEDS: CEFEPIME 2 GM in SODIUM CHL 0.9% 50ML MIN-BAG+ 50 ML IVPB SCH (23:15)
[2018-03-05] MEDS: diltiaZEM HCL TAB 30 MG TAB PO SCH ×4 (00:05→18:43)
[2018-03-05] MEDS: ALBUTEROL SULFATE 2.5 MG/3 ML VIAL NEB PRN ×2 (00:06→04:03)
[2018-03-05] MEDS: SODIUM CHLORIDE 0.9% 1000ML 1,000 ML IVS PRN ×2 (03:31→17:36)
[2018-03-05] MEDS: PANTOPRAZOLE SODIUM IV 40 MG VIAL IV SCH (06:01)
[2018-03-05] MEDS: IPRATROPIUM/ALBUTEROL 3 ML VIAL NEB SCH ×4 (07:10→19:34)
--- NOTE | 2018-03-05 07:14 | RAD ---
CHEST 03/05/2018 CLINICAL HISTORY: Pneumonia. COMPARISON: Chest 03/04/2018. TECHNIQUE: AP Chest. FINDINGS: There are new dense airspace opacities throughout the left upper lobe consistent with pneumonia. There is bilateral lower lobe atelectasis. No pneumothorax or large pleural effusion. Left costophrenic angle is excluded from the field of imaging. Cardiac size is enlarged. There is no pulmonary edema. There is no pulmonary vascular congestion. Lungs are mildly hyperinflated. IMPRESSION: 1. Significant left upper lobe pneumonia. Bilateral lower lobe atelectasis. 2. Hyperinflation. Electronically signed by: Magdalena Andrew DO 03/05/2018 7:13 AM PHARMACY INFORMATICS MANAGER
[2018-03-05] MEDS: INSULIN LISPRO 100 UNITS/ML PEN SUBCU SCH ×4 (07:56→21:06)
[2018-03-05] MEDS: NYSTATIN POWDER 15GM BTTL TOP SCH ×5 (09:00→21:06)
[2018-03-05] MEDS: ALLOPURINOL 100 MG TAB PO SCH (09:51)
[2018-03-05] MEDS: DIGOXIN 0.125 MG TAB PO SCH (09:52)
[2018-03-05] MEDS: ESCITALOPRAM 10 MG TAB PO SCH (09:52)
[2018-03-05] MEDS: metFORMIN XR 500 MG TAB.ER.24 PO SCH ×3 (09:53→21:06)
[2018-03-05] MEDS: SPIRONOLACTONE 25 MG TAB PO SCH (09:53)
[2018-03-05] MEDS: LOSARTAN POTASSIUM 25 MG TAB PO SCH (09:53)
[2018-03-05] MEDS: FUROSEMIDE 40 MG TAB PO SCH (09:53)
[2018-03-05] MEDS ORDERED: CEFEPIME 2 GM VIAL ONE ×2 (11:30→20:04)
[2018-03-05] MEDS ORDERED: SODIUM CHL 0.9% 50ML MIN-BAG+ 50 ML IVPB ONE ×2 (11:30→20:03)
[2018-03-05] MEDS: CEFEPIME 2 GM in SODIUM CHL 0.9% 50ML MIN-BAG+ 50 ML IVPB SCH ×2 (11:36→23:12)
--- NOTE | 2018-03-05 14:49 | PN ---
SUPERVISING PHYSICIAN: Marcin Posada MD DATE: 03/05/18 SUBJECTIVE: The patient is lying in his bed. He is asleep. He awakens easily. He has no complaints. He denies shortness of breath, nausea or vomiting. He answers simple yes/no questions appropriately. There is no family at the bedside at this time. OBJECTIVE: VITAL SIGNS: Temperature 97.8. Heart rate 83. Blood pressure 97/49. Respiratory rate 22. O2 saturation 93% on high-flow cannula. RESPIRATORY: Coarse rhonchi on the right upper and lower lobes. A few scattered expiratory wheezes in the apices. Diminished breath sounds throughout. He is slightly tachypneic at times. GASTROINTESTINAL: Abdomen is soft, nondistended, nontender. Bowel sounds are positive. NEUROLOGIC: Awake, alert and oriented to person and place only. LABORATORY: WBCs have normalized to 10.6, but he still has a left shift on differential. Hemoglobin 9.2, hematocrit 28.6. Blood sugars have run between 162 and 310. Sodium 135, potassium improved slightly to 5.2, chloride 106, BUN 37, creatinine slightly improved to 1.48. Bilirubin 1.3. Lactic acid from yesterday after fluid was 1.6. Digoxin 1.3. Preliminary blood cultures show no growth after 24 hours. Urine cultures pending. Chest x-ray shows significant left upper lobe pneumonia, bilateral lower lobe atelectasis and hyperinflation. All other labs and films have been reviewed via the EMR. ASSESSMENT: 1. Sepsis secondary to bilateral pneumonia, most likely healthcare associated pneumonia with an admitting heart rate of greater than 140, respiratory rate of 36, WBCs of 14,400, temperature of 100.4 and lactic acid of 3.1. 2. Atrial fibrillation on digoxin with accelerated heart rates up to the 140s. 3. Electrolyte imbalance, improved. 4. Elevated bilirubin, improved. 5. Inguinal yeast infection. 6. Diabetes mellitus, type 2. 7. Chronic obstructive pulmonary disease. 8. Obstructive sleep apnea. 9. Chronic renal insufficiency. 10. Gout on allopurinol. 11. Hypertension on losartan. PLAN: We will continue present supportive care. We will monitor his cultures as they become available. Continue on the cefepime for right now. Yesterday, he required some Cardizem because his heart rate was staying in the 130s to 140s and I put him on some p.o. Cardizem 30 mg every 6 hours. So far, his heart rate has stayed in the 80s and 90s. He is continuing on his digoxin, but may need the Cardizem on discharge. I have repeated his labs tomorrow. He is on sliding scale insulin with a.c. and h.s. blood sugar checks. Aggressive pulmonary hygiene. We will continue to monitor the patient closely and follow as needed. Dr. Posada is the collaborating physician and available for consultation. #[id number] [facility]
[2018-03-05] MEDS: NON-FORMULARY MEDICATION 1 EA MIS (Umeclidinium-Vilanterol [Anoro Ellipta 62.5-25 Mcg/Inh] IN SCH (15:22)
[2018-03-05] MEDS: POLYETHYLENE GLYCOL 3350 17 GM PCKT PO SCH (17:10)
[2018-03-05] MEDS ORDERED: LEVALBUTEROL NEBS 1.25 MG/3 ML VIAL NEB ONE ×2 (19:26→22:39)
[2018-03-05] MEDS: ENOXAPARIN SODIUM 30 MG/0.3 ML SYG SUBCU SCH (21:06)
[2018-03-06] MEDS: diltiaZEM HCL TAB 30 MG TAB PO SCH ×4 (00:18→17:43)
[2018-03-06] MEDS: ALBUTEROL SULFATE 2.5 MG/3 ML VIAL NEB PRN (02:30)
[2018-03-06] MEDS: SODIUM CHLORIDE 0.9% 1000ML 1,000 ML IVS PRN ×2 (06:12→18:33)
[2018-03-06] MEDS: PANTOPRAZOLE SODIUM IV 40 MG VIAL IV SCH (06:12)
[2018-03-06] MEDS ORDERED: MORPHINE SULFATE INJ 10 MG/ML VIAL IV ONE (06:57)
[2018-03-06] MEDS ORDERED: SODIUM CHL 0.9% 50ML MIN-BAG+ 50 ML IVPB ONE ×2 (07:28→19:55)
[2018-03-06] MEDS ORDERED: CEFEPIME 2 GM VIAL ONE ×2 (07:29→19:55)
[2018-03-06] MEDS: INSULIN LISPRO 100 UNITS/ML PEN SUBCU SCH ×4 (08:00→21:39)
[2018-03-06] MEDS: FUROSEMIDE 40 MG TAB PO SCH (08:03)
[2018-03-06] MEDS: DIGOXIN 0.125 MG TAB PO SCH (08:03)
[2018-03-06] MEDS: SPIRONOLACTONE 25 MG TAB PO SCH (08:03)
[2018-03-06] MEDS: metFORMIN XR 500 MG TAB.ER.24 PO SCH ×3 (08:03→20:54)
[2018-03-06] MEDS: NON-FORMULARY MEDICATION 1 EA MIS (Umeclidinium-Vilanterol [Anoro Ellipta 62.5-25 Mcg/Inh] IN SCH (08:04)
[2018-03-06] MEDS: ALLOPURINOL 100 MG TAB PO SCH (08:04)
[2018-03-06] MEDS: ESCITALOPRAM 10 MG TAB PO SCH (08:04)
[2018-03-06] MEDS: POLYETHYLENE GLYCOL 3350 17 GM PCKT PO SCH (08:04)
[2018-03-06] MEDS: LOSARTAN POTASSIUM 25 MG TAB PO SCH (08:04)
[2018-03-06] MEDS: NYSTATIN POWDER 15GM BTTL TOP SCH ×4 (08:05→20:54)
[2018-03-06] MEDS: IPRATROPIUM/ALBUTEROL 3 ML VIAL NEB SCH ×4 (08:43→20:09)
[2018-03-06] MEDS: CEFEPIME 2 GM in SODIUM CHL 0.9% 50ML MIN-BAG+ 50 ML IVPB SCH ×2 (10:41→23:03)
--- NOTE | 2018-03-06 13:11 | PN ---
SUPERVISING PHYSICIAN: Marcin Posada MD DATE: 03/06/18 SUBJECTIVE: The patient is lying in his hospital bed. He has family in his room. They have talked to [facility] and when the patient leaves the hospital going back to [facility], he will have [facility]. At this time, we will continue to aggressively treat his issues. I explained to them that his prognosis is poor as he has had very low blood pressure, his respiratory rate is up, his creatinine is slightly worsened. They understand that his condition is very poor. The patient actually denies any pain, nausea, vomiting, coughing, shortness of breath. OBJECTIVE: VITAL SIGNS: Temperature 98.1. Heart rate 86. Blood pressure 92/69. Earlier it had been 81/55. Respiratory rate runs between 24 and 34. O2 saturation 92%. RESPIRATORY: Diminished breath sounds throughout. He is tachypneic with a few scattered rhonchi. CARDIAC: regular rate and rhythm. GASTROINTESTINAL: Abdomen is soft, nondistended, nontender. Bowel sounds are positive. NEUROLOGIC: Awake, alert and oriented to person and place. LABORATORY: WBCs 11,600, hemoglobin and hematocrit stable at 9.2 and 28.2. He has a left shift on his differential. Blood sugars have been running between 157 and 243. Sodium 135, potassium 5.7, chloride 105, carbon dioxide 21, BUN 44, creatinine 1.82. Calcium 8.9, magnesium 2. Preliminary blood cultures showed no growth after 48 hours. Urine culture pending. All other labs and films have been reviewed via the EMR. ASSESSMENT: 1. Sepsis secondary to bilateral pneumonia, most likely healthcare associated pneumonia with an admitting heart rate of greater than 140, respiratory rate of 36, WBCs of 14,400, temperature of 100.4 and lactic acid of 3.1. 2. Atrial fibrillation on digoxin with accelerated heart rates up to the 140s. 3. Electrolyte imbalance, improved. 4. Elevated bilirubin, improved. 5. Inguinal yeast infection. 6. Diabetes mellitus, type 2. 7. Chronic obstructive pulmonary disease. 8. Obstructive sleep apnea. 9. Chronic renal insufficiency. 10. Gout on allopurinol. 11. Hypertension on losartan. PLAN: We will continue present supportive care. We will continue to monitor his cultures as they become available. His condition is slightly worsened and the family has discussed using [facility]. I also spoke with Dr. Coles and he felt it would be an appropriate admission to hospice, so at this time when he goes back to [facility], he will need to be set up with [facility]. I did have to increase his Cardizem yesterday to 60 mg every 6 hours as his heart rate was up in the 120s to 130s. His heart rate is staying down in the 80s and 90s at this time. He will need to be discharged on some Cardizem for now. We will continue aggressive pulmonary hygiene and monitor the patient and treat as indicated. Dr. Posada is the collaborating physician and available for consultation. #[id number] [facility]
[2018-03-06] MEDS: MORPHINE SULFATE INJ 10 MG/ML VIAL IV PRN (13:40)
[2018-03-06] MEDS: SODIUM CHLORIDE 0.9% (FLUSH) 10 ML SYG IV PRN (13:41)
[2018-03-06] MEDS ORDERED: MORPHINE SULFATE INJ 10 MG/ML VIAL IV PRN (14:13)
[2018-03-06] MEDS ORDERED: traMADol HCL 50 MG TAB PO PRN (14:13)
[2018-03-06] MEDS: ENOXAPARIN SODIUM 30 MG/0.3 ML SYG SUBCU SCH (20:54)
[2018-03-07] MEDS: diltiaZEM HCL TAB 30 MG TAB PO SCH ×4 (00:08→18:08)
[2018-03-07] MEDS: ALBUTEROL SULFATE 2.5 MG/3 ML VIAL NEB PRN (04:00)
[2018-03-07] MEDS: PANTOPRAZOLE SODIUM TAB 40 MG PO SCH (06:05)
--- NOTE | 2018-03-07 06:54 | RAD ---
EXAM: AP CHEST RADIOGRAPH CLINICAL INDICATION: Pneumonia. COMPARISON: Compared to chest radiograph March 05, 2018. FINDINGS: Increasingly dense left upper lobe consolidation and right lower lobe consolidation. New small bilateral pleural effusions. No pneumothorax, pneumomediastinum or free peritoneal gas. No hilar or mediastinal lymphadenopathy. No mediastinal widening. Bones are intact on this single view. IMPRESSION: Increasing bilateral pulmonary consolidations and new small bilateral pleural effusions suspicious for pneumonia. Electronically signed by: Al Godoy MD 03/07/2018 6:53 AM [facility]
[2018-03-07] MEDS: SODIUM CHLORIDE 0.9% 1000ML 1,000 ML IVS PRN (07:07)
[2018-03-07] MEDS: INSULIN LISPRO 100 UNITS/ML PEN SUBCU SCH ×2 (07:59→17:50)
[2018-03-07] MEDS: IPRATROPIUM/ALBUTEROL 3 ML VIAL NEB SCH ×4 (08:25→20:38)
[2018-03-07] MEDS: MORPHINE SULFATE INJ 10 MG/ML VIAL IV PRN ×3 (09:36→18:18)
[2018-03-07] MEDS: SPIRONOLACTONE 25 MG TAB PO SCH (10:06)
[2018-03-07] MEDS: LOSARTAN POTASSIUM 25 MG TAB PO SCH (10:06)
[2018-03-07] MEDS: metFORMIN XR 500 MG TAB.ER.24 PO SCH ×3 (10:06→21:04)
[2018-03-07] MEDS: ESCITALOPRAM 10 MG TAB PO SCH (10:07)
[2018-03-07] MEDS: DIGOXIN 0.125 MG TAB PO SCH (10:07)
[2018-03-07] MEDS: FUROSEMIDE 40 MG TAB PO SCH (10:07)
[2018-03-07] MEDS: POLYETHYLENE GLYCOL 3350 17 GM PCKT PO SCH (10:07)
[2018-03-07] MEDS: ALLOPURINOL 100 MG TAB PO SCH (10:08)
[2018-03-07] MEDS: NYSTATIN POWDER 15GM BTTL TOP SCH ×4 (10:08→20:55)
[2018-03-07] MEDS ORDERED: levoFLOXacin 500MG IV 500 MG in PREMIX BAG 1 BAG IVPB ONE (10:26)
[2018-03-07] MEDS ORDERED: FUROSEMIDE INJ 40 MG/4 ML VIAL IV ONE ×2 (11:01→16:35)
[2018-03-07] MEDS ORDERED: levoFLOXacin 500MG IV 100 ML IVPB ONE (11:10)
[2018-03-07] MEDS ORDERED: SODIUM CHL 0.9% 50ML MIN-BAG+ 50 ML IVPB ONE ×2 (12:29→20:13)
[2018-03-07] MEDS ORDERED: CEFEPIME 2 GM VIAL ONE ×2 (12:29→20:13)
[2018-03-07] MEDS: CEFEPIME 2 GM in SODIUM CHL 0.9% 50ML MIN-BAG+ 50 ML IVPB SCH ×2 (12:40→22:45)
[2018-03-07] MEDS ORDERED: LINEZOLID IV 300 ML IVPB ONE (14:14)
[2018-03-07] MEDS: LINEZOLID IV 600 MG in PREMIX BAG 1 BAG IVPB SCH (14:19)
[2018-03-07] MEDS: IV SET AND CAP CHANGE INJ INJ SCH (16:26)
[2018-03-07] MEDS ORDERED: DEX 5% W/NACL 0.45% 1000ML 1,000 ML IVS PRN (16:35)
[2018-03-07] MEDS: ENOXAPARIN SODIUM 30 MG/0.3 ML SYG SUBCU SCH (20:55)
--- NOTE | 2018-03-07 21:48 | PN ---
DATE: 03/07/18 SUPERVISING PHYSICIAN: Marcin Posada M.D. SUBJECTIVE: The patient is showing some deterioration this morning. His breathing is more labored. He is having to utilize higher flow of oxygen with a Venti mask at 55% at least to maintain his O2 saturation above 90%. He has been getting Ativan and is showing to be restless. The patient's family is at bedside and I did discuss with them at length the patient's situation and they were very appreciative of this. He has been afebrile and at this point [facility] however he has gotten where he will not take his oral medications without choking. OBJECTIVE: VITAL SIGNS: Temperature 98.4, pulse 96, blood pressure 102/54, respirations 20, satting anywhere from 87% on high flow nasal cannula up to 92% with a Venti mask at 55%. I's and O's are showing a positive balance with 1323 with 1890 in, 575 out. His weight has gone up from 79.2 kg to 81.8 kg and is up from admission of 77.7 kg. GENERAL: The patient is resting in bed with a Venti mask in place. He is minimally responsive but does attempt to pull his mask off and will follow basic commands, but he appears to be comfortable in no acute distress, although he is showing some increased work to breathe. CHEST: Lung sounds are significantly decreased throughout with prominent rhonchi heard bilaterally, but no obvious wheezing or rales. HEART: Irregular rate and rhythm but a controlled ventricular rate in the 80s and 90s according to bedside monitor. ABDOMEN: Soft, non-tender. Positive bowel sounds. EXTREMITIES: Just a trace of edema bilaterally. NEUROLOGIC: He is lethargic but will respond to verbal and tactile stimulation, but does not answer questions verbally. LABORATORY: CBC shows white count 9,000, hemoglobin now at 8.4, hematocrit 26.3, platelet count 167,000. Differential does show a continued left shift. Chemistries shows a sodium 134, potassium 5.7, chloride 106, carbon dioxide 22, anion gap low at 11.7, BUN 59, creatinine 2.27. Blood sugars have ranged between 180 and 239. Calcium .8, magnesium 2.0. MICROBIOLOGY: Urine culture is pending. Blood cultures show no growth in 3 days. RADIOLOGY: Chest x-ray this morning per radiology interpretation shows increasing bilateral pulmonary consolidation and/or new small bilateral pleural effusions suspicious for pneumonia. ASSESSMENT: 1. Sepsis secondary to bilateral pneumonia, likely healthcare acquired. 2. Atrial fibrillation having been on digoxin therapy with now controlled ventricular rates on Cardizem. 3. Persistent electrolyte imbalance with hyperkalemia and hyponatremia. 4. Elevated bilirubin returning to baseline. 5. Persistent inguinal yeast infection. 6. Diabetes mellitus, type 2 with good glycemic control. 7. Chronic obstructive pulmonary disease with exacerbation secondary to bilateral pneumonia, both left upper lobe and right lower lobe. 8. Obstructive sleep apnea. 9. Acute on chronic renal insufficiency with slight worsening creatinine, probably some prerenal azotemia from intravascular dehydration and Lasix administration. 10. Gout on allopurinol. 11. Hypertension on losartan showing to be stable. PLAN: Given that he had a significant decrease in his clinical condition I am going to increase his antibiotic coverage with Zyvox and Levaquin, with the Levaquin being renally dosed and he will continue to Cefepime for coverage of healthcare acquired pneumonia. Will continue with aggressive pulmonary hygiene. I have increased his pain management by decreasing the morphine from every 4 hours to every 3 hours 1 to 2 mg as well as increasing Ativan to 1 mg every 6 hours p.r.n. I did discussed at length with the patient's family the patient's clinical condition and the fact that I am afraid that the patient may not survive current hospitalization and they have been in touch with [facility]. We did discuss continuing with aggressive management in regards to antibiotic therapy and more aggressive management with some comfort measures with morphine and Ativan to prevent the patient from being restless and in any pain. They are in a discussion of possible option to go to inpatient hospice if his condition worsens or if he does show improvement certainly will go back to the [facility]. Will continue with his antibiotic coverage. I have given him 40 of Lasix and probably cover additional 40 this afternoon to hopefully increase his output. I have given him some low maintenance fluids with some D5 since the patient has refused to take any oral intake, and hopefully will get a better response to his fluid management and see if it seems to be improving his kidney function overnight. Will plan to repeat his labs in the morning as well as a chest x-ray. Until the patient can transition either to an outpatient setting or possibly to inpatient hospice, will continue to treat as needed. #[id number] [facility]
[2018-03-08] MEDS: diltiaZEM HCL TAB 30 MG TAB PO SCH ×2 (00:08→06:15)
[2018-03-08] MEDS: INSULIN LISPRO 100 UNITS/ML PEN SUBCU SCH ×3 (00:24→16:58)
[2018-03-08] MEDS: MORPHINE SULFATE INJ 10 MG/ML VIAL IV PRN ×4 (00:29→09:49)
[2018-03-08] MEDS ORDERED: LINEZOLID IV 300 ML IVPB ONE (01:30)
[2018-03-08] MEDS: LINEZOLID IV 600 MG in PREMIX BAG 1 BAG IVPB SCH ×2 (01:42→16:58)
[2018-03-08] MEDS: SODIUM CHLORIDE 0.9% (FLUSH) 10 ML SYG IV PRN (03:08)
[2018-03-08] MEDS: PANTOPRAZOLE SODIUM TAB 40 MG PO SCH (06:21)
--- NOTE | 2018-03-08 06:51 | RAD ---
EXAM DESCRIPTION: Chest,1 View CLINICAL HISTORY:88 years Male, pneumonia Comparison: March 07, 2018 FINDINGS: Unchanged dense left upper lung consolidation and worsening bibasilar patchy opacities with small pleural effusions. CT chest recommended for further evaluation. Cardiac silhouette is unchanged. No pneumothorax. Electronically signed by: Atif Reagan MD 03/08/2018 6:50 AM RETAIL SHIFT LEADER
[2018-03-08 06:58] VITALS: BP 92/59; TEMP 97
[2018-03-08] MEDS: IPRATROPIUM/ALBUTEROL 3 ML VIAL NEB SCH ×2 (08:43→12:10)
[2018-03-08] MEDS ORDERED: INSULIN, REG.(HUMAN) 10 UNITS in DEXTROSE 10% 500ML 500 ML IV PRN ×2 (09:02)
[2018-03-08] MEDS ORDERED: INSULIN, REG.(HUMAN) 100 U/ML VIAL ONE (09:44)
[2018-03-08] MEDS ORDERED: DEXTROSE 10% 500ML 500 ML IVPB ONE (09:58)
[2018-03-08] MEDS ORDERED: levoFLOXacin 250MG IV 250 MG in PREMIX BAG 1 BAG IVPB SCH (10:00)
[2018-03-08 12:12] VITALS: O2SAT 92
[2018-03-08] MEDS: ALLOPURINOL 100 MG TAB PO SCH (13:57)
[2018-03-08] MEDS: NYSTATIN POWDER 15GM BTTL TOP SCH (16:58)
--- NOTE | 2018-03-09 08:50 | DS ---
SUPERVISING PHYSICIAN: Marcin Posada MD ADMISSION DIAGNOSIS: 1. Sepsis secondary to bilateral pneumonia, likely healthcare acquired. 2. Electrolyte imbalance most likely hyponatremia, hypochloremia and hyperkalemia. 3. Mildly elevated bilirubin. 4. Intertrigo of the inguinal area. 5. Diabetes mellitus, type 2. 6. Atrial fibrillation on digoxin. 7. Chronic obstructive pulmonary disease. 8. Obstructive sleep apnea. 9. Chronic renal insufficiency. 10. Gout on allopurinol. 11. Hypertension on losartan. DISCHARGE DIAGNOSIS: 1. Sepsis secondary to bilateral pneumonia, likely healthcare acquired. 2. Atrial fibrillation on digoxin and newly started Cardizem. 3. Persistent electrolyte imbalance including worsening hyperkalemia secondary to acute renal failure. 4. Acute renal failure with hyperkalemia secondary to #1. 5. Persistent inguinal yeast infection. 6. Mildly elevated bilirubin. 7. Diabetes mellitus, type 2. 8. Chronic obstructive pulmonary disease with exacerbation secondary to bilateral pneumonia of the left upper lobe and right lower lobe. 9. Obstructive sleep apnea. 10. Gout on allopurinol. 11. Hypertension, but showing to be hypotensive. REASON FOR HOSPITAL ADMISSION: This is an 88 year-old male patient who lives at [facility]. He has had about 3 to 4 days of coughing, low- grade fever and progressive weakness. He actually fell yesterday but did not hit his head and had no loss of consciousness, but he refused to come to the E. R. Due to the coughing and low-grade fever he did come this morning. His temperature was 100.1 with a pulse rate of 141, respiratory rate of 36, blood pressure 114/57 and O2 sat was 90% on 3 liters nasal cannula. Lab was done and he was found to have a sodium of 132 with potassium 5.7, chloride 100, carbon dioxide 23, BUN 38, creatinine 1.55. His baseline creatinine is about 1.4 to 1.5. His glucose was elevated at 198. He had a BNP of 460. Total bilirubin was 1.6 and lactic acid was 3.1. Troponin was slightly elevated at 0.06. WBCs were 14.4 with hemoglobin 10.1, hematocrit 30.8. He did have a left shift on his differential. UA was basically within normal limits with a small amount of urine leukocyte esterase and trace of intact urine blood. Blood cultures were drawn and an x-ray was also done. Chest x-ray shows interval development of interstitial infiltrate in the left upper lobe with subtle fullness possible slight retraction to the left hilum superiorly. Recommend chest CT to exclude underlying obstructive mass. Heart size is normal. Prominent central vasculature/pulmonary artery on the right, perihilar/peribronchial thickening may relate to chronic bronchitis. Head CT was also done which showed no intracranial hemorrhage or evidence of cerebral contusion. Senescent brain. White matter disease and volume loss. Fluid in the left maxillary sinus partially visualized, may relate to sinusitis or trauma. He was given some Cefepime in the Emergency Room as well as approximately 2 liters of fluid. He was given several breathing treatments. I was called for hospital admission. LABORATORY: White count on admission was 14,400. On day of discharge to hospice, it was 10,100. Hemoglobin and hematocrit were fairly stable at 9.3 and 29.9. Platelet count 200,000. Differential did show a persistent left shift with little improvement through hospitalization. PT 11, PTT 29.9. Chemistries on admission showed sodium 132, calcium 5.7, chloride 100, BUN 38, creatinine 1.55. Lactic acid was 3.1 initially. After fluids, it went down to 1.6. Magnesium showed persistent low levels at 1.6, but responded to treatment to 2.0. BNP was elevated on admission at 460. His potassium remained persistently high and at discharge was 6.3. Sodium normalized to 135. Creatinine continued to increase and at discharge was 3.02. Urinalysis showed trace intact blood with small amount of leukocyte esterase on admission. After fluid replacement, showed trace intact blood, otherwise within normal limits. Toxicology showed digoxin level 1.3. MICROBIOLOGY: Urine culture final results showed a mixed urogenital rylie. Blood cultures remained negative at 4 days. RADIOLOGY: Initial x-ray in the Emergency Room showed interval development of interstitial infiltrate in left upper lobe, subtle fullness possibly slight retraction of the left hilum superiorly. Prominent central vasculature/pulmonary artery on the right, perihilar peribronchial thickening which may relate to bronchitis. He had multiple x-rays through his admission and final x-ray on discharge despite of aggressive treatment with antibiotics showed unchanged dense left upper lung consolidation, worsening bibasilar patchy opacities with small pleural effusion. HOSPITAL COURSE: Mr. Durand was admitted for sepsis due to pneumonia on 01/09/19. He was treated aggressively with antibiotics that included Levaquin, Zyvox and cefepime. Despite aggressive treatment, his renal function declined, he became more hyperkalemic. He was not responding to the antibiotic treatment and was showing worsening respiratory efforts and was maintaining low O2 saturations even with a Ventimask. His vital signs on admission showed temperature 101, heart rate 141, blood pressure 114/57, respirations 36, short of breath, oxygen saturation 95% on 3 liters nasal cannula. At discharge, temperature was 97.6, pulse 121, blood pressure 93/59, respirations 28, oxygen saturation 91% on high flow Ventimask. After lengthy discussion with family present, the family had come to the agreement that they had made aggressive treatment choices and had tried everything possible and felt like the patient would not agree with the current plan and would rather go to care and comfort measures given his severity of disease process. [facility] was then consulted for inpatient hospice. PLAN: The patient was to be discharged from Acute Care to hospice, however, the patient shortly after discontinuing all regular medications and continued to be on Acute Care prior to expiration. Therefore, he was actually on Acute Care when he . The patient at 13:36 with family bedside. He had been having care and comfort measures initiated shortly after consultation with hospice in the process of trying transferring the patient to hospice care. However, the patient succumbed to his illness and was pronounced. was confirmed by lack of ausculatory evidence of cardiac activity and respiratory effort. The family was a bedside and very appreciative of the care that the patient was given. The wishes of the family and the patient was that the body was to be donated to [facility], which will be handled by nursing staff. The patient's was not unexpected as his initial admission for pneumonia was certainly critical and he was not very responsive to treatment, in fact, he did go ultimately go into acute renal failure with hyperkalemia. Again, the family was very appreciative of the care and support given by hospital staff. Dr. Coles, his primary care physician, was notified of the patient's . DISPOSITION: The patient and the body was released to [facility] for donation to science. #[id number]; #[id number] [facility]
== END 2018-03-08 17:30 | disposition expired | DRG 871 ==
LOC: ER 08:48 → MS 12:00
PROVIDERS: ADMIT Nurse Practitioner Acute Care; ATTEND Nurse Practitioner Family
DX: A41.9 Sepsis, unspecified organism (principal); J18.9 Pneumonia, unspecified organism; J44.0 Chronic obstructive pulmonary disease with (acute) lower respiratory infection; E87.1 Hypo-osmolality and hyponatremia; J44.1 Chronic obstructive pulmonary disease with (acute) exacerbation; N17.9 Acute kidney failure, unspecified; I48.91 Unspecified atrial fibrillation; I12.9 Hypertensive chronic kidney disease with stage 1 through stage 4 chronic kidney disease, or unspecified chronic kidney disease; G47.33 Obstructive sleep apnea (adult) (pediatric); E87.5 Hyperkalemia; E11.22 Type 2 diabetes mellitus with diabetic chronic kidney disease; N18.9 Chronic kidney disease, unspecified; R65.20 Severe sepsis without septic shock; M1A.9XX0 Chronic gout, unspecified, without tophus (tophi); B37.2 Candidiasis of skin and nail; E86.0 Dehydration; Y95 Nosocomial condition; Z96.651 Presence of right artificial knee joint; Z66 Do not resuscitate; Z88.5 Allergy status to narcotic agent; Z88.0 Allergy status to penicillin; Z88.2 Allergy status to sulfonamides; Z88.8 Allergy status to other drugs, medicaments and biological substances; Z87.891 Personal history of nicotine dependence; Z79.84 Long term (current) use of oral hypoglycemic drugs